=== PATIENT | male | born 1985 | race Two or more races ===

== ENCOUNTER 2020-01-30 05:23 | Inpatient (IN) | payer OTHER ==
[~2020-01-30] VITALS: Ht 165.1 cm; Wt 87.1 kg
[2020-01-30] VITALS (14 sets, daily range): BP systolic 99–131; BP diastolic 54–81
[2020-01-30] MEDS ORDERED: ceFAZolin sod 2 GM in NS 55 ML IVPB ONE (06:30)
[2020-01-30] MEDS ORDERED: LR 1000ml 1,000 ML IVLG SCH (06:34)
[2020-01-30] MEDS ORDERED: Rocuronium Bromide 50mg/5ml Inj IV ONE (06:37)
[2020-01-30] MEDS ORDERED: Vancomycin 1gm vial IVPB ONE (06:39)
[2020-01-30] MEDS ORDERED: Gelfoam Size TOPIC ONE ×2 (06:40→11:20)
[2020-01-30] MEDS ORDERED: Ropivacaine 5mg/ml Vial 20ml INJ ONE ×2 (06:40→08:05)
[2020-01-30] MEDS ORDERED: fentaNYL 100 mcg/2 mL IV ONE (06:40)
[2020-01-30] MEDS ORDERED: Bacitracin 50000 Units Vial ONE (06:40)
[2020-01-30] MEDS ORDERED: Thrombin 5000 units TOPIC ONE ×2 (06:40→11:20)
[2020-01-30] MEDS ORDERED: Hydromorphone 0.5mg/0.5ml inj IVP PRN (06:45)
[2020-01-30] MEDS ORDERED: oxyCODONE HCL/Acetaminophen 5/325mg ORAL PRN (06:45)
[2020-01-30] MEDS ORDERED: DiphenhydrAMINE 50mg/ml Inj IVP PRN (06:45)
[2020-01-30] MEDS ORDERED: Atropine Sulfate 0.4mg/ml inj IVP PRN (06:45)
[2020-01-30] MEDS ORDERED: HYDROcodone/Acetamin 7.5/325 tab ORAL PRN ×3 (06:45→11:30)
[2020-01-30] MEDS ORDERED: Midazolam 2mg/2ml Inj IVP PRN (06:45)
[2020-01-30] MEDS ORDERED: Metoclopramide 10mg/2ml Inj IVP PRN ×2 (06:45→11:30)
[2020-01-30] MEDS ORDERED: fentaNYL 100 mcg/2 mL IV PRN (06:45)
[2020-01-30] MEDS ORDERED: HYDROcodone/Acetamin 5/325 tab ORAL PRN ×2 (06:45→11:30)
[2020-01-30] MEDS ORDERED: Acetaminophen (Non formulary) 100 ML IV ONE (06:45)
[2020-01-30] MEDS ORDERED: Ketorolac 30mg Inj IV PRN ×2 (06:45)
[2020-01-30] MEDS ORDERED: LORazepam Inj 2mg/ml 1ml IV PRN (06:45)
[2020-01-30] MEDS ORDERED: Meperidine 25mg/0.5ml Inj (FOR RIGORS ONLY) IV PRN (06:45)
[2020-01-30] MEDS ORDERED: Labetalol 5mg/ml 20ml vial IV PRN (06:45)
--- NOTE | 2020-01-30 06:45 | Anethesia Preoperative Eval ---
Anesthesia Pre-op PMH/ROS General Date of Evaluation: Jan 30, 2020 Time of Evaluation: 07:06 Anesthesiologist: Lexus ASA Score: ASA 2 Mallampati Score Class I : Soft palate, uvula, fauces, pillars visible Class II: Soft palate, uvula, fauces visible Class III: Soft palate, base of uvula visible Class IV: Only hard plate visible Mallampati Classification: Class II Surgeon: Xochilt Diagnosis: Back Pain Surgical Procedure: L5-S1 Microdisectomy, Forminotomy, Hemilainotomy Anesthesia History: none Family History: no anesthesia problems Allergies: Coded Allergies: No Known Allergies (Unverified , 01/29/20) Medications: see eMAR Patient NPO?: Yes Past Medical History Gastrointestinal/Genitourinary: Reports: GERD Other: obesity - BMI 33 Anesthesia Pre-op Phys. Exam Physician Exam Last Vital Signs Date Time Temp Pulse Resp B/P (MAP) Pulse Ox O2 Delivery O2 Flow Rate FiO2 01/30/20 06:26 Room Air 01/30/20 06:14 97.6 74 18 127/72 (90) 99 Constitutional: NAD Neurologic: CN 2-12 intact Cardiovascular: RRR Respiratory: CTA Gastrointestinal: S/NT/ND Airway Exam Mallampati Score: Class II MO: full ROM: full Teeth: missing, intact Anesthesia Pre-op A/P Risk Assessment & Plan Assessment: ASA 2 Plan: GA, SED, GlideScope Status Change Before Surgery: No Pre-Antibiotics Dru Grams Ancef IV Given Within 1 Hr of Incision: Yes Time Given: 07:31 Emilio Alberts MD Jan 30, 2020 06:45
--- NOTE | 2020-01-30 06:46 | Immediate Post-Op Evaluation ---
Immediate Post-Op Evalulation Immediate Post-Op Evalulation Procedure: L5-S1 Microdiscectomy, Forminotomy, Hemilainotomy Date of Evaluation: Jan 30, 2020 Time of Evaluation: 09:29 IV Fluids: 1000 LR Blood Products: 0 Estimated Blood Loss: 50 Urinary Output: 200 Blood Pressure Systolic: 115 Blood Pressure Diastolic: 71 Pulse Rate: 74 Respiratory Rate: 16 O2 Sat by Pulse Oximetry: 100 Temperature (Fahrenheit): 98.2 Pain Score (1-10): 2 Nausea: No Vomiting: No Complications 0 Patient Status: awake, reacts, patent, extubated, none Hydration Status: adequate Dru Grams Ancef IV Given Within 1 Hr of Incision: Yes Time Given: 07:31 Emilio Alberts MD Jan 30, 2020 06:46
--- NOTE | 2020-01-30 06:47 | 48 Hour Post Anesthesia Eval ---
Post Anesthesia Evaluation Procedure: L5-S1 Microdiscectomy, Forminotomy, Hemilainotomy Date of Evaluation: Jan 30, 2020 Time of Evaluation: 11:56 Blood Pressure Systolic: 111 0: 72 Pulse Rate: 76 Respiratory Rate: 18 Temperature (Fahrenheit): 98.4 O2 Sat by Pulse Oximetry: 100 Airway: patent Nausea: No Vomiting: No Pain Intensity: 2 Hydration Status: adequate Cardiopulmonary Status: Stable Mental Status/LOC: patient returned to baseline Follow-up Care/Observations: 0 Post-Anesthesia Complications: 0 Follow-up care needed: N/A Emilio Alberts MD Jan 30, 2020 06:47
[2020-01-30] MEDS ORDERED: Sodium Chloride 10ml vial INJ ONE (06:48)
[2020-01-30] MEDS ORDERED: Lidocaine 1% MPF 10mg/ml 5ml ONE (06:48)
[2020-01-30] MEDS ORDERED: Sterile Water Irrig 1000ml IRRIG ONE (07:00)
[2020-01-30] MEDS ORDERED: NS Irrig 1000ml ONE (07:00)
[2020-01-30] MEDS ORDERED: LR 1000ml ONE (07:00)
[2020-01-30] MEDS ORDERED: propofoL 1,000mg/100ml IV ONE ×2 (07:00)
[2020-01-30] MEDS ORDERED: Lidocaine 1% Plain 30 ml INJ ONE (07:04)
--- NOTE | 2020-01-30 07:26 | Pre-Procedure Note/Attestation ---
Pre-Procedure Note/Attestation Complete Prior to Procedure Planned Procedure: left Procedure Narrative: Left sided hemilaminotomy foraminotomy and microdiscectomy of lumbar 5-S1 Indications for Procedure Pre-Operative Diagnosis: L5S1 herniation Attestation I attest that I discussed the nature of the procedure; its benefits; risks and complications; and alternatives (and the risks and benefits of such alternatives ), prior to the procedure, with the patient (or the patient's legal benefits representative). I attest that, if there was a reasonable possibility of needing a blood transfusion, the patient (or the patient's legal benefits representative) was given the [facility] standardized written summary, pursuant to the [place] Blood Safety Act ([place] Health and Safety Code # 1645, as amended). I attest that I re-evaluated the patient just prior to the surgery and that there has been no change in the patient's H&P, except as documented below: Jacob Lemon MD Jan 30, 2020 07:26
--- NOTE | 2020-01-30 07:27 | Brief Operative Note ---
Immediate Post Operative Note Operative Note Chief Complaint: back pain and left leg radiculopathy Pre-op Diagnosis: L5S1 herniation Procedure: Left sided hemilaminotomy foraminotomy and microdiscectomy of lumbar 5-S1 Post-op Diagnosis: same as pre-op Findings: consistent w/pre-op dx studies Surgeon: Xochilt Manager Quality: Victorina Anesthesiologist: Lexus Anesthesia: general Specimen: none Complications: none Condition: stable Fluids: ivf Estimated Blood Loss: minimal Drains: none Implant(s) used?: No Jacob Lemon MD Jan 30, 2020 07:27
[2020-01-30] MEDS ORDERED: NS Irrig 1000ml IRRIG ONE (08:37)
[2020-01-30] MEDS ORDERED: Neostigmine 1mg/ml 10ml Inj ONE (08:50)
[2020-01-30] MEDS ORDERED: Glycopyrrolate 0.2mg/ml 1ml Vial ONE (08:50)
--- NOTE | 2020-01-30 10:33 | NUR ---
NURSE NOTES: Patient arrived safely and in stable condition to 3E via patient bed. Patient's anterior back dressing is clean, dry and intact, no reports of pain at this time. Sensation and movement are intact in bilateral upper and lower extremities. Cell phone is at the bedside and belongings will be brought up. Bed is low and locked, side rails up x2, call light is within reach.
[2020-01-30] MEDS ORDERED: Chloraseptic Spray 20mL Bottle ORAL PRN (11:30)
[2020-01-30] MEDS ORDERED: Morphine Sulfate 4mg/ml Inj (IV USE ONLY) IV PRN ×2 (11:30)
[2020-01-30] MEDS ORDERED: Morphine Sulfate 2mg/ml Inj(IV/IM USE ONLY) IV PRN (11:30)
[2020-01-30] MEDS ORDERED: Milk of Magnesia 30ml Ud ORAL PRN (11:30)
[2020-01-30] MEDS ORDERED: Naloxone 0.4mg/ml Inj IVP PRN (11:30)
[2020-01-30] MEDS ORDERED: HYDROmorphone 1mg/ml Carpuject IVP PRN (11:30)
--- NOTE | 2020-01-30 12:02 | Diagnostic Imaging Report ---
INDICATION: Pain, intraoperative TECHNIQUE: Intraoperative imaging Fluoroscopy time: 4.2 seconds Total dose: 0.4355 mGym2 Total number of images: One COMPARISON: None FINDINGS: Single intraoperative image demonstrates surgical tool projected posterior to what is presumably the L5-S1 disc IMPRESSION: Intraoperative imaging, as described
[2020-01-30] MEDS: NS w/KCl 20mEq 1000ml 1,000 ML IV SCH ×2 (12:46→21:17)
[2020-01-30] MEDS: ceFAZolin sod 1 GM in D5W 55 ML IV SCH (16:19)
--- NOTE | 2020-01-30 17:57 | NUR ---
CASE MANAGEMENT: INITIAL REVIEW 01/30/2020 34 YO M PRESENTED TO HOSPITAL CC: L5S1 herniation SI:S/P Left sided hemilaminotomy foraminotomy and microdiscectomy of lumbar 5-S1 T 97.6 HR 74 RR 18 B/P 127/72 SATS 99% ON RA LABS: NO LABS IS:OR MEDS PATIENT ADMITTED TO MED/SURG 01/30/2020 @ 0727 PLAN OF CARE: PAIN MANAGEMENT POST OP CARE
[2020-01-30] MEDS: Docusate 100mg cap ORAL SCH ×2 (18:00→18:29)
--- NOTE | 2020-01-30 18:02 | NUR ---
INSURANCE NO B/AR INDICATION WHERE TO FAX CLINICALS
--- NOTE | 2020-01-30 19:35 | NUR ---
NURSE HAND-OFF: Important Events on Shift:[] Patient Status: stable Diet: regular Pending Orders: Pending Results/Labs: Pending MD notification: Latest Vital Signs: Temperature 98.8 , Pulse 81 , B/P 111 /74 , Respiratory Rate 18 , O2 SAT 99 , Nasal Cannula, O2 Flow Rate 3 . Vital Sign Comment: Latest Duarte Fall Score: 20 Fall Risk: Low Risk Safety Measures: Call light , Bed Alarm , Side Rails Side Rails x1, Bed position Low and Locked. Fall Precautions: Report given to Laly BHAKTA.
--- NOTE | 2020-01-30 19:40 | NUR ---
NURSE NOTES: Received report from YONY Howard. Pt is awake, lying semi-hook's; comfortably resting. No signs of acute distress noted. Pt denies any pain at this time. AOx4; able to make needs known. Checked IV site, line, and rate; patent and running. No erythema, bleeding, or infiltration noted. Dressing in the lower posterior back; dry and intact. SCDs noted; on and running. Pt oriented to room. Bed at lowest position. Brakes on. Siderails up x3. Call light within reach. Will continue to monitor.
[2020-01-31] VITALS: BP 103/56
[2020-01-31] MEDS: ceFAZolin sod 1 GM in D5W 55 ML IV SCH ×2 (00:25→08:28)
--- NOTE | 2020-01-31 03:15 | Operative Note - Dictated ---
DATE OF OPERATION: 01/30/2020 SURGEON: Jacob Lemon MD CENTER DIRECTOR: KRISTEL Chaney. ANESTHESIA: General endotracheal anesthesia. PREOPERATIVE DIAGNOSES: 1. Intractable back pain. 2. Intractable leg pain. 3. Worsening radiculopathy. 4. Weakness. 5. Herniated nucleus pulposus, L5-S1 herniation. 6. Neural foraminal stenosis, L5-S1. POSTOPERATIVE DIAGNOSES: 1. Intractable back pain. 2. Intractable leg pain. 3. Worsening radiculopathy. 4. Weakness. 5. Herniated nucleus pulposus, L5-S1 herniation. 6. Neural foraminal stenosis, L5-S1. PROCEDURES PERFORMED: 1. Left-sided L5-S1 microdiscectomy. 2. L5-S1 hemilaminotomy, foraminotomy and medial facetectomy. 3. L5-S1 neural foraminotomy through a transpedicular intraforaminal approach. 4. Use of intraoperative microscope. 5. Supervision and interpretation of intraoperative fluoroscopy. 6. Supervision and interpretation of somatosensory-evoked potential and free running EMG monitoring. EBL: Less than 100 mL. COMPLICATIONS: None. INDICATIONS FOR THE PROCEDURE: The patient presents for intractable back pain and radiculopathy. The patient tried and failed a prolonged course of conservative management, including but not limited to chiropractic therapy, physical therapy, nonsteroidal anti-inflammatory drugs, medication, ice packs as well as epidural injection. Despite these therapies, the patient still developed recalcitrant pain and elected for definitive management in the form of left-sided L5-S1 microdiscectomy, L5-S1 hemilaminotomy, foraminotomy and medial facetectomy, L5-S1 neural foraminotomy through a transpedicular intraforaminal approach. CONSENT: We had a long discussion with the patient regarding definitive surgical treatment options. The patient's MRI demonstrated herniated nucleus pulposus, L5-S1 herniation, neural foraminal stenosis, L5-S1 and as a result, I felt the patient would benefit from the discectomy as well as neural foraminotomy at this level. We had a long discussion with the patient regarding the risks, alternatives, and benefits of surgery. Our description of the risks included a discussion in person as well as a signed consent which detailed all pertinent risks and the procedure itself. Briefly, our discussion included but was not limited to infection, bleeding, pseudarthrosis, spinal cord injury, neurovascular injury, dural tear, CSF leak, neuropathy, paralysis, permanent weakness/drop foot, paresthesias blindness, palsy and weakness. The patient understood there may be a need for revision surgery or additional procedures. Approach related complications including dysphonia, dysphagia, blindness, permanent vocal cord and neural injury, hematoma, swallowing and breathing difficulty. Medical complications including liver, kidney, shock, and cardiopulmonary failure. Anesthesia complications including , swelling. Damage to the musculature, larynx (voice injury or loss),esophagus (throat), trachea, blood vessels and muscles (muscular sprain) and lungs (pneumothorax) during this surgical procedure. Injury to deeper structures may be temporary or permanent. The patient understood these and elected to proceed. A written and verbal consent was given. We discussed the pros and cons of all the alternatives. We discussed the uncertainties associated with the decision. Afterwards I assessed the patients understanding and explored their preferences. All questions were answered and no guarantees were given. Medical clearance was obtained prior to surgery INTRAOPERATIVE FINDINGS: L5-S1: After the hemilaminotomy and foraminotomy was performed, I noticed posterior migration of the neural elements. I used a Hungry Horse 4 and a narrow nerve root retractor to discover the source of the posterior migration and discovered a nuclear fragment of nuclear pulposus tissue. This was carefully mobilized with a Microsect-1B and the source led to a nearly vertical tear in the annulus fibrosis near the posterolateral one-third margin of the disc on the left neural foramina inline approximately with the annulus fibrosis. The tear appeared acute as we could see acute frame of the outer annular fibers. Disc was resected with a combination of a Gonsalez pituitary, arthroscopic pituitaries, 1.5 and 2 mm pituitary rongeurs. The disc itself was soft and spongy. There was nothing desiccated or dehydrated or the disc. This led me to process. DESCRIPTION OF PROCEDURE: Under the benefit of general endotracheal anesthesia and with the assistance of the entire operative team, the patient was moved from the gurney onto the operative table in the prone position on a Pop frame. The head was secured and positioned appropriately. Bilateral arms were secured with Gel pads and foam and all bony prominences were padded. The bilateral lower extremity SCD and CHARLA hose were placed for DVT prophylaxis. A surgical timeout was called which corroborated our planned procedure. Preoperative Antibiotics were administered within 30 minutes of the incision for prophylaxis. Decadron was given for preoperative steroids. Using lateral radiography, the operative levels were delineated. An incision was marked based on our interpretation of lateral radiography and afterwards the body was prepped and draped in the usual sterile manner. The family was notified that we were ready to commence surgery and were called in the waiting room hourly for updates An incision was based on our lateral fluoroscopic image to center the incision at the L5-S1 interspace. The wound was prepped and draped in the usual sterile fashion. Using a scalpel a midline incision was taken down through the skin and subcutaneous tissues until the overlying hemilamina of L5-S1 were visualized. Next, using meticulous hemostasis, hemilaminotomies were dissected and retractors were placed. Using a [employer]able Media dental, we confirmed placement at the L5-S1 interspace. We next turned our attention to our decompression. A standard hemilaminotomy foraminotomy medial facetectomy was performed at each level in standard fashion using a Midas-Dany type AM8 drill bit, straight and angled curettage, and Kerrison 4 rongeurs until the lateral thecal sac margin and traversing nerve root was visualized. All remainders of the ligamentum flavum and lateral bony margins were resected in total with angled curettage and Kerrison 4 rongeurs until the lateral thecal sac margin and traversing nerve root was visualized and decompressed. We next turned our attention toward our L5-S1 microdiscectomy on the left side. A Hungry Horse 4 was used to gently mobilize the thecal sac medially and this was held retracted with a bayonetted nerve root retractor. It was at this point that we noted a large broad-based disc protrusion with encroachment dorsally on the thecal sac neural foraminal contents. A bayonet and nerve root retractor was then placed carefully to retract the thecal sac and a discectomy was performed using a combination of a long handled 15 blade scalpel, downgoing and straight pituitaries and downgoing curettage. Afterward the disc space was irrigated twice with 20 mL of antibiotic-impregnated saline. All loose and free-floating disc fragments were carefully resected with a narrow pituitary. Having been satisfied with our decompression after our discectomy of all neural elements, we next turned our attention to our neural foraminoplasty/foraminotomy. This was performed through a transpedicular intraforaminal approach using an access probe followed by a neuro check device, which confirmed ventral placement of our nerve root. Once we confirmed we were safe, we next turned our attention towards placement of our size 10 file under direct microscopic visualization and under lateral fluoroscopy. Using pre and post reciprocation imaging, we were able to visualize our direct decompression given the reciprocation allowed for re-creation of the neural foraminal arch at L5-S1. Afterwards, hemostasis was obtained with 60 mL of antibiotic-impregnated saline followed by FloSeal and Gelfoam. After sponge and needle count were found to be correct, we next turned our attention to closure. Closure consisted of 1-0 Vicryl in standard interrupted fashion. Zosyn was placed deep to the fascia and superficial to the fascia for antibiotic prophylaxis. Skin closure was performed with 2-0 Vicryl in interrupted fashion followed by a running Monocryl for the skin. Final dressings consisted of Dermabond for the superficial skin, Telfa and Tegaderm. The patient tolerated the procedure well. The patient was extubated after the conclusion of surgery without incident. We discussed the findings of the surgery with the family upon completion of the case. At this point the patient will be transferred to the spine floor for further observation. Jacob Lemon M.D. DR: KWAME JOB#: [id number] CC:
[2020-01-31 04:00] VITALS: BP 105/57
--- NOTE | 2020-01-31 07:19 | NUR ---
NURSE HAND-OFF: Important Events on Shift:N/A Patient Status: Stable Diet: Regular Pending Orders: N/A Pending Results/Labs:N/A Pending MD notification: n/a Latest Vital Signs: Temperature 98.6 , Pulse 66 , B/P 105 /57 , Respiratory Rate 18 , O2 SAT 96 , Room Air, O2 Flow Rate 3 . Vital Sign Comment: [] Latest Duarte Fall Score: 35 Fall Risk: Medium Risk Safety Measures: Call light Within Reach, Bed Alarm , Side Rails Side Rails x3, Bed position Low and Locked. Fall Precautions: Yellow Socks Yellow Gown Door Sign Patient Fall Education Report given to YONY Rome.
--- NOTE | 2020-01-31 07:27 | NUR ---
NURSE NOTES: Received report from Laly BHAKTA, rounds made , pt awake A/Ox4, breaths regular unlabored on RA,no s/s of distress , pt remains stable s/p surgery , denies any pain at this time , pt able to wiggle toes, with strong bilateral pedal pulses , pt has bilateral SCD on , IVF on the R hand 20 G, patent asymptomatic , bed in low locked position, side rails Up X2, belongings and call light within reach, will continue to monitor
[2020-01-31 08:00] VITALS: BP 112/69
[2020-01-31] MEDS: NS w/KCl 20mEq 1000ml 1,000 ML IV SCH (08:28)
[2020-01-31] MEDS: Docusate 100mg cap ORAL SCH (08:28)
--- NOTE | 2020-01-31 08:53 | General Progress Note ---
Assessment/Plan Assessment/Plan: back pain and left leg radiculopathy L5S1 herniation Left sided hemilaminotomy foraminotomy and microdiscectomy of lumbar 5-S1 PLAN 1. incentive spirometry 2. SCD 3. PT evaluation and therapy 4. Hydration 5. Pain management 6. discharge today pending surgical and PT clearance Subjective Allergies: Coded Allergies: No Known Allergies (Unverified , 01/29/20) Subjective stable and anxious to go home Objective Last 24 Hour Vital Signs Date Time Temp Pulse Resp B/P (MAP) Pulse Ox O2 Delivery O2 Flow Rate FiO2 01/31/20 04:00 98.6 66 18 105/57 (73) 96 01/31/20 00:00 98.1 65 20 103/56 (72) 97 01/30/20 21:00 Room Air 01/30/20 20:00 99.4 65 18 104/54 (71) 95 01/30/20 18:59 98.8 01/30/20 16:00 98.8 81 18 111/74 (86) 99 01/30/20 12:00 97.8 77 17 131/60 (83) 98 01/30/20 11:30 98.5 78 18 102/66 (78) 98 01/30/20 11:00 97.7 83 18 106/71 (83) 99 01/30/20 10:36 98.6 67 17 110/75 (87) 99 01/30/20 10:15 97.7 66 18 116/74 100 Nasal Cannula 3 01/30/20 10:00 66 20 113/81 100 Nasal Cannula 3 01/30/20 09:45 64 14 101/60 100 Simple Mask 6 01/30/20 09:35 65 14 99/60 100 Simple Mask 6 01/30/20 09:25 66 14 104/62 100 Simple Mask 6 01/30/20 09:20 68 104/65 100 Simple Mask 6 01/30/20 09:17 76 18 100 01/30/20 09:15 97.3 69 24 109/75 100 Simple Mask 6 Intake and Output 01/30/20 01/31/20 19:00 07:00 Intake Total 1450 ml 400 ml Output Total 750 ml 600 ml Balance 700 ml -200 ml Intake Oral 250 ml 400 ml IV Total 1200 ml Output Urine Total 700 ml 600 ml Estimated Blood Loss 50 ml # Voids 1 3 Height (Feet): 5 Height (Inches): 5.00 Weight (Pounds): 192 Objective WDWN NAD clear breath sounds bilaterally without rhonchi or wheeze [id number] without MRG NABS nontender no HSM no CCE nonfocal Aman Orozco MD Jan 31, 2020 08:53
--- NOTE | 2020-01-31 11:26 | NUR ---
PT Note PT eval completed, treatment initiated. Patient was able to verbalize and demonstrate all back precautions and log rolling techniques. PT goals achieved. No further PT needed.
[2020-01-31 12:00] VITALS: BP 112/69
--- NOTE | 2020-01-31 12:16 | NUR ---
CASE MANAGEMENT:REVIEW 01/31/20 SI: POD #1 S/P MICRODISCECTOMY,HEMILAMINOTOMY 98.6 70 18 112/69 100% ON RA IS: COLACE PO BID IVF+KCL@100/HR NORCO PO Q3HRS PRN : MED/SURG STATUS 3 EAST PLAN; DISCHARGE HOME
--- NOTE | 2020-01-31 13:00 | NUR ---
NURSE NOTES: Pt discharged in stable condition, pt picked by Brother , technical proposal writer escorted pt to front of ER in wheel chair with all his belongings
--- NOTE | 2020-02-02 14:28 | Discharge Summary ---
Discharge Summary Hospital Course Date of Admission Jan 30, 2020 at 05:23 Date of Discharge Jan 31, 2020 at 13:00 Admitting Diagnosis Herniated nucleus pulposus, back pain and left leg radiculopathy Reason for Hospitalization: Elective surgery LY Lorenzo is a 34 year old male who was admitted on Jan 30, 2020 at 05:23 for Herniated Nucleus Pulposus,Pain,Radiculopathy Consultations Dr Orozco -IM/recovery analyst Procedures s/p 01/30/[address] Lemon 1. Left-sided L5-S1 microdiscectomy. 2. L5-S1 hemilaminotomy, foraminotomy and medial facetectomy. 3. L5-S1 neural foraminotomy through a transpedicular intraforaminal approach. 4. Use of intraoperative microscope. 5. Supervision and interpretation of intraoperative fluoroscopy. 6. Supervision and interpretation of somatosensory-evoked potential and free running EMG monitoring. Hospital Course status post surgery course of recovery uneventful initially IV fluids s/p perioperative antibiotic and steroid neurovascular status closely monitored, remained stable incision clean dry and intact pain management was addressed and pain was controlled patient remained hemodynamically stable ambulated with PT fall precautions maintained; safe for ambulation DVT prophylaxis provided use of incentive spirometry was encouraged while in the bed tolerated diet , IV fluids discontinued GI prophylaxis provided antiemetics were on board as needed voided freely bowel regimen instituted patient was stable for discharge discharge instructions provided follow up with surgeon in the office as advised POSTOPERATIVE DIAGNOSES: 1. Intractable back pain. 2. Intractable leg pain. 3. Worsening radiculopathy. 4. Weakness. 5. Herniated nucleus pulposus, L5-S1 herniation. 6. Neural foraminal stenosis, L5-S1. 7. s/p Left sided hemilaminotomy foraminotomy and microdiscectomy of lumbar L5- S1 Discharge Medications Medication Profile: No Active Prescriptions or Reported Meds Discharge Condition Upon Discharge: stable Discharge Vital Signs Last Vital Signs Date Time Temp Pulse Resp B/P (MAP) Pulse Ox O2 Delivery O2 Flow Rate FiO2 01/31/20 12:00 98.6 69 18 112/69 (83) 100 01/31/20 09:00 Room Air 01/30/20 10:15 3 Discharge Disposition Patient was discharged home Discharge Instructions Discharge Instructions Special Instructions I have been assigned to complete a D/C Summary on this account. I was not involved in the patient management Shelbi Hillman NP Feb 02, 2020 14:28
== END 2020-01-31 13:00 | disposition home or self-care (01) | DRG 520 ==
LOC: SDSOVERFLO 05:23 → 3E 10:31
DX: M51.17 Intervertebral disc disorders with radiculopathy, lumbosacral region (principal); M48.07 Spinal stenosis, lumbosacral region; V43.52XS Car driver injured in collision with other type car in traffic accident, sequela
CPT/HCPCS: 36415; 72020; 76000; 86850; 86900; 86901; 87081; 94003; 94150; J2405; J2710; J2795; U0002